=== PATIENT | female | born 1990 | race Caucasian/White ===

== ENCOUNTER 2021-03-24 19:18 | Emergency (ER) | payer OTHER, BC, SELFPAY ==
[2021-03-24 19:21] VITALS: BP 147/101; PULSE 85; RESP 18; TEMP 36.1; O2SAT 100
--- NOTE | 2021-03-24 21:07 | ED.GENADULT ---
HPI - General Adult General Chief complaint: Recheck/Abnormal Lab/Rx Stated complaint: possible hepatitus exposure Time Seen by Provider: 03/24/21 20:15 Source: patient Mode of arrival: ambulatory Limitations: no limitations History of Present Illness HPI narrative: Patient presents with chief complaint of left second digit injury while using a dental instrument in the patient's mouth prior to arrival. Patient reports that she instantly milked the finger and washed it thoroughly with antibacterial soap and peroxide. Patient reports that she was wearing a glove at the time and she left the glove over and it was not broken however she had an avulsion of her skin with blood noted that was hers. She states the patient reported having hepatitis as a child, so she wanted to be evaluated. She reports Hepatitis B vaccination.She denies any additional issues. Related Data Allergies Allergy/AdvReac Type Severity Reaction Status Date / Time lisinopril AdvReac Severe cough Verified 03/24/21 20:07 Review of Systems Review of Systems: CONSTITUTIONAL: Denies fever, chills, or sweats. EYES: Denies visual changes, redness, or discharge. ENT: Denies rhinorrhea, congestion, sore throat, or otalgia. CARDIOVASCULAR: Denies chest pain, palpitations, or edema. RESPIRATORY: Denies cough or dyspnea. GASTROINTESTINAL: Denies abdominal pain, nausea, vomiting, or diarrhea. GENITOURINARY: Denies dysuria or hematuria. SKIN: Reports skin avulsion denies rash or itching. MUSCULOSKELETAL: Denies back pain, joint pain, or myalgia. NEUROLOGIC: Denies headache, numbness, dizziness, or weakness. PSYCHIATRIC: Denies anxiety or depression. [facility] Family History Family History Father Hypertension Mother Hypertension Grandparent Acute myocardial infarction, Onset Age: 62 Family history unknown, Onset Age: 78 Social History Social History Smoking status: Never smoker Second hand tobacco smoke exposure: No Alcohol intake: never Substance use: never Exam Narrative: GENERAL: Well-appearing, well-nourished, and in no acute distress. HEAD: Normocephalic, atraumatic. EYES: PERRLA and EOMI. CHEST: Clear to auscultation. No respiratory distress. No wheezes rales or rhonchi. No tachypnea EXTREMITIES: Normal range of motion. No edema. SKIN: avulsion to left 2nd digit. No active bleeding. Warm, dry, no rash. NEURO: No focal deficits. Alert and oriented x3. PSYCH: Normal mood and affect. Course Vital Signs Vital signs: Vital Signs Temperature 97 F L 03/24/21 19:21 Pulse Rate 85 03/24/21 19:21 Respiratory Rate 18 03/24/21 19:21 Blood Pressure 147/101 H 03/24/21 19:21 Pulse Oximetry 100 03/24/21 19:21 Temperature 97 F L 03/24/21 19:21 Pulse Rate 85 03/24/21 19:21 Respiratory Rate 18 03/24/21 19:21 Blood Pressure 147/101 H 03/24/21 19:21 Pulse Oximetry 100 03/24/21 19:21 Medical Decision Making MDM Narrative Medical decision making narrative: Discussed with patient the CDC handout regarding blood exposures and recommendations. Discussed with her that there is not prophylactic treatment for hepatitis however there is for HIV. Patient would like to be prescribed HIV prophylactic treatment. Discussed risk-benefit profile. Discussed need for follow-up for retesting. Patient denies history of HIV. Patient denies chance of . Vital Signs Vital Signs: Vital Signs Temperature 97 F L 03/24/21 19:21 Pulse Rate 85 03/24/21 19:21 Respiratory Rate 18 03/24/21 19:21 Blood Pressure 147/101 H 03/24/21 19:21 Pulse Oximetry 100 03/24/21 19:21 Temperature 97 F L 03/24/21 19:21 Pulse Rate 85 03/24/21 19:21 Respiratory Rate 18 03/24/21 19:21 Blood Pressure 147/101 H 03/24/21 19:21 Pulse Oximetry 100 03/24/21 19:21 Lab Data Labs: Lab Results 03/24/21 03/24/21 Range/
[2021-03-24 21:25] VITALS: BP 140/84; PULSE 85; RESP 18; O2SAT 100
[2021-03-24 21:51] LABS: HIV 1/2 Ab P24 Ag Result Negative (Negative)
[2021-03-24 22:06] LABS: Hepatitis B Surface Antigen Negative (Negative)
[2021-03-24 22:12] LABS: HAV RESULT Negative (Negative); Hepatitis B Core IgM Result Negative (Negative)
[2021-03-24 22:24] LABS: Hepatitis C Virus Antibody Negative (Negative)
== END 2021-03-24 21:25 | disposition home or self-care (01) ==
LOC: ANHED 21:19
PROVIDERS: Physician Assistant; Emergency Provider Family Medicine; PCP Internal Medicine
DX: Z77.21 Contact with and (suspected) exposure to potentially hazardous body fluids (principal)
CPT/HCPCS: 36415; 80074; 86703; 99283; G0432

== ENCOUNTER 2023-11-02 10:55 | Outpatient (CLI) | payer OTHER, SELFPAY ==
[2023-11-02 13:13] LABS: Alanine Aminotransferase 18 U/L (6-35); Albumin Level 4.6 g/dL (3.5-5.1); Alkaline Phosphatase 60 U/L (38-126); Anion Gap 7 mmol/L (4-12); Aspartate Amino Transferase 51 U/L (14-36); Bilirubin,Total 0.6 mg/dL (0.2-1.3); Blood Urea Nitrogen 10 mg/dL (7-17); Carbon Dioxide 27 mmol/L (22-30); Chloride 104 mmol/L (98-107); Cholesterol 197 mg/dL (0-200); Estimated Glomerular Filt Rate > 60; Glucose 78 mg/dL (65-110); HDL Direct 37 mg/dL; Potassium 4.3 mmol/L (3.4-5.0); Sodium 138 mmol/L (137-145); Triglycerides 212 mg/dL (<150)
[2023-11-02 13:24] LABS: LDL Cholesterol Direct 124 mg/dL
[2023-11-02 13:49] LABS: Hemoglobin A1C 5.1 % (<5.7)
== END 2023-11-02 10:56 | disposition home or self-care (01) ==
LOC: ANHGOSHLAB 10:58
PROVIDERS: PCP Family Medicine; Visit Provider Family Medicine
DX: R73.9 Hyperglycemia, unspecified (principal); Z13.228 Encounter for screening for other metabolic disorders; E78.2 Mixed hyperlipidemia
CPT/HCPCS: 36415; 80053; 80061; 83036

== ENCOUNTER 2023-12-22 16:02 | Outpatient (CLI) | payer OTHER, SELFPAY ==
[2023-12-22 20:03] LABS: Free T4 Free Thyroxine 0.79 ng/mL (0.78-2.19)
== END 2023-12-22 16:03 | disposition home or self-care (01) ==
LOC: ANHGOSHLAB 16:03
PROVIDERS: PCP Family Medicine; Visit Provider Family Medicine
DX: Z13.29 Encounter for screening for other suspected endocrine disorder (principal)
CPT/HCPCS: 36415; 84439; 84443

== ENCOUNTER 2024-01-03 13:45 | Outpatient (CLI) | payer OTHER, SELFPAY ==
--- NOTE | ~2024-01-03 | MR_ITS ---
EXAMINATION: MRA neck wo/w con, MRA brain wo con DATE: 01/03/2024 14:55 INDICATION: Pulsatile tinnitus at the left ear TECHNIQUE: 1. Magnetic resonance angiography (MRA) of the neck was performed without and with 15 mL Multihance i ntravenous contrast. Sequences included axial 2D-time of flight T1-weighted FSPGR and coronal T1-weig hted FSPGR without and with intravenous contrast. 2. Magnetic resonance angiography (MRA) of the brain was performed without intravenous contrast with T1-weighted SPGR by the 3D [id number] technique. COMPARISON: None. FINDINGS: MRA NECK: There is 0% stenosis of the right carotid bulb relative to normal distal artery lumen diameter (NASCE T criteria). There is 0% stenosis of the left carotid bulb relative to normal distal artery lumen di ameter. Bilateral vertebral arteries are codominant with no evident hemodynamically significant steno sis. Bilateral A1 and P1 segments are patent. MRA brain: There is normal flow related signal seen within the vertebral, basilar and internal carotid arteries. There is no proximal stenosis. There are no aneurysms identified. Both A1 and P1 segments are pat ent. Flow in the cerebral arteries is symmetric. No abnormal arterial structures in the bilateral te mporal bones. The bilateral jugular bulbs are not high riding. IMPRESSION: 1. 0% stenosis of the right and left carotid bulbs relative to normal distal artery lumen diameter (N ASCET criteria). 2. Normal cerebral MR angiogram with no aneurysm or dissection. Reviewed, dictated and finalized at location A. IMPRESSION: 1. 0% stenosis of the right and left carotid bulbs relative to normal distal ar laly lumen diameter (NASCET criteria). 2. Normal cerebral MR angiogram with no aneurysm or dissection. IMPRESSION: 1. 0% stenosis of the right and left carotid bulbs relative to normal distal ar layl lumen diameter (NASCET criteria). 2. Normal cerebral MR angiogram with no aneurysm or dissection.
== END 2024-01-03 13:46 | disposition home or self-care (01) ==
PROVIDERS: PCP Family Medicine; Visit Provider Family Medicine
DX: H93.A2 Pulsatile tinnitus, left ear (principal); Z82.49 Family history of ischemic heart disease and other diseases of the circulatory system
CPT/HCPCS: 70544; 70549; A9577

== ENCOUNTER 2024-11-01 13:48 | Outpatient (CLI) | payer OTHER, SELFPAY ==
--- OUTSIDE RECORDS SUMMARY | 2024-11-01 14:04 | XMS_ITS | Referral Summary ---
Author Organization [facility] [address] [place] [phone] Care Team Providers Care Fundraising Manager Name Role Phone Bravo Hernandez DO Primary Care Provider [phone] Allergies No known active allergies Medications hydroCHLOROthiaz román (HYDRODIURIL) 12.5 mg tablet Take 12.5 mg by mouth daily 12/21/2021 Active losartan (COZAAR) 100 mg tablet Take 1 tablet (100 mg total) by mouth daily 12/21/2021 Active labetaloL (NORMODYNE,TRAND ATE) 100 mg tablet Take 1 tablet (100 mg total) by mouth 2 (two) times a day 10/28/2023 Active Active Problems Problem Noted Date Diagnosed Date Family history of ischemic heart disease 024 Social History Tobacco Use Types Packs/Day Years Used Date Smoking Tobacco: Never Smokeless Tobacco: Never Personal Safety Answer Date Recorded Getting School Help Needed Not on file 07/16 Comments Unknown Sex and Gender Information Value Date Recorded Sex Assigned at Not on file Legal Sex Female 3:06 PM CDT Gender Identity Female 07/08/2024 8:44 PM ENTERPRISE APPLICATION ARCHITECT Sexual Orientation Straight 07/08/2024 8: 44 PM ENTERPRISE APPLICATION ARCHITECT Last Filed Vital Signs Vital Sign Reading Time Taken Comments Blood Pressure 110/74 11/24/2023 1:41 PM CDT Pulse 87 11/24/2023 1:41 PM CDT Temperature - - Respiratory Rate - - Oxygen Saturation 99% 11/24/2023 1:41 PM CDT Inhaled Oxygen Concentration - - Weight 127.5 kg (281 lb 1.6 oz) 11/24/2023 1:41 PM CDT Height 190.5 cm (6' 3) 11/24/2023 1:41 PM CDT Body Mass Index 35.14 11/24/2023 1:41 PM CDT Plan of Treatment Not on file Insurance [employer] PPO [employer] PPO Care Teams Fundraising Manager Relationship Specialty Start Date End Date Bravo Hernandez DO [address] [place] [address] [place] [address] PCP - General Family Medicine 11/24/23
--- OUTSIDE RECORDS SUMMARY | 2024-11-01 14:04 | XMS_ITS | Clinical Summary ---
Author Organization [facility] Address [address] [place] [address] Care Team Providers Care Director Museum Or Zoo Name Role Phone Unavailable Primary Care Provider Unavailabl e Source Comments [facility],non-owned Affiliates and Associated Physician Practices is amultiple site organization consisting of ambulatory clinics and hospital sitesin [place], [place], [place] and [place]. This disclosure is being madepursuant to the Care Everywhere program and may not contain all information available regarding this patient. Last updated 18.[facility] [employer] Social History Tobacco Use Types Packs/Day Years Used Date Smoking Tobacco: Never Assessed Comments Unknown Sex and Gender Information Value Date Recorded Sex Assigned at Not on file Legal Sex Female 3:53 PM CDT Gender Identity Not on file Sexual Orientation Not on file Plan of Treatment Health Maintenance Due Date Last Done Comments HIV SCREENING 10/10/2003 HEPATITIS C SCREENING 10/05/2006 DTAP/TDAP/TD VACCINES (1 - Tdap) 10/10/2007 HEPATITIS B VACCINE (1 of 3 - 19+ 3-dose series) 10/10/2007 COVID-19 VACCINE ( - 2023-2 5 season) 2024 DEPRESSION SCREENING 05/16/2024 INFLUENZA VACCINE (Season Ended) 2025 ZOSTER VACCINE (1 of 2) 2038 HIB VACCINE Aged Out No longer eligi ble based on patient's age to complete this topic HPV VACCINE Aged Out No longer eligi ble based on patient's age to complete this topic MENINGOCOCCAL (Group B) VACC INE SHARED DECISION-MAKING Aged Out No longer eligibl e based on patient's age to complete this topic MENINGOCOCCAL GROUPS A/C/Y/W VACCINE Aged Out No longer eligible b ased on patient's age to complete this topic PNEUMOCOCCAL VACCINE Aged Out No long er eligible based on patient's age to complete this topic Insurance ANTHEM ANTHEM Member Subscriber Plan / Payer (Ef fective 2013-Present) Name:Marlys Washington Relation to Subscriber:Self Name:Marlys Washington Payer ID:[id number] (NAIC) Type:PPO Address: [address] [place] [id number]
--- OUTSIDE RECORDS SUMMARY | 2024-11-01 14:04 | XMS_ITS | Clinical Summary ---
Author Organization [facility] [address] [place] [phone] Care Team Providers Care Registered Travel Nurse Name Role Phone Bravo Hernandez DO Primary Care Provider [phone] Allergies No known active allergies Medications hydroCHLOROthiaz [...] Family history of ischemic heart disease 024 Medical History Medical History Date Comments Hypertension Family History Medical History Relation Name Comments Heart disease Father Heart attack Mother Relation Name Status Comments Father Mother Social History Tobacco Use Types Packs/Day Years Used Date Smoking Tobacco: Never Smokeless Tobacco: Never Personal Safety Answer Date Recorded Getting School Help Needed Not on file 07/16 Comments Unknown Sex and Gender Information Value Date Recorded Sex Assigned at Not on file Legal Sex Female 3:06 PM CDT Gender Identity Female 07/08/2024 8:44 PM HUMAN RESOURCES SUPERVISOR Sexual Orientation Straight 07/08/2024 8: 44 PM HUMAN RESOURCES SUPERVISOR Obstetrics History Last Filed Vital Signs Vital Sign Reading [...] 11/24/2023 1:41 PM CDT Plan of Treatment Health Maintenance Due Date Last Done Comments Cervical Cancer Screening 1988 Depression Screening 1988 Hepatitis C Screening 1988 DTaP/Tdap/Td Vaccine (1 - Tdap) 10/10/1999 Varicella Vaccines (1 of 2 - 13+ 2-dose series) 2001 Hepatitis B Screening 2006 Regular Well Visit/Exam 18-64 2006 Covid-19 Vaccine ( - 2023-2 5 season) 2024 03/21/2021, 06/18/2020, 05/28/2020 Influenza Vaccine (Season Ended) 2025 03/07/2021, 02/15/2020 HPV Vaccines Aged Out No longer eligi ble based on patient's age to complete this topic Pneumococcal vaccine <65 Aged Out No longer eligible based on patient's age to complete this topic Insurance [facility] OPTIONS PPO [facility] HMO/PPO Address: [facility] [address] [place] [address] [employer] OPTIONS PPO [facility] HMO/PPO Address: [address] [address] Care Teams Registered Travel Nurse Relationship Specialty Start Date End Date Bravo Hernandez DO [facility] [place] [address] PCP - General Family Medicine 11/24/23
--- OUTSIDE RECORDS SUMMARY | 2024-11-01 14:04 | XMS_ITS | Clinical Summary ---
Author Organization [facility] Address [address] [place] [phone] Phone Care Team Providers Care Religious Assistant Name Role Phone Unavailable Primary Care Provider Unavailabl e Immunizations Immunization Administration Dates Next Due (PFIZER)(12 YR UP) COVID-19 VACCINE - EMERGENCY USE AUTHORIZATION, MRNA, [id number](PF) 30 MCG/0.3 ML IM SUSP 06/18/2020,05/28/2020 Social History Tobacco Use Types Packs/Day Years Used Date Smoking Tobacco: Never Assessed Comments Unknown Sex and Gender Information Value Date Recorded Sex Assigned at Not on file Legal Sex Female 3:23 PM INFORMATION RECEPTIONIST Gender Identity Not on file Sexual Orientation Not on file Plan of Treatment Health Maintenance Due Date Last Done Comments DTAP/TDAP/TD VACCINES (1 - Tdap) 10/10/2007 HEPATITIS B VACCINES (1 of 3 - 19+ 3-dose series) 10/10/2007 HPV/Cotest (21-29) 2009 CERVICAL CANCER SCREENING 2018 HPV/Cotest (30-65) 2018 PAP SMEAR 2018 INFLUENZA VACCINE (#1) 2023 COVID-19 Vaccine (3 - 2023- season) 2024 06/18/2020, 05/28/2020 HPV VACCINES Aged Out No longer eligi ble based on patient's age to complete this topic
[2024-11-01 19:55] LABS: Hematocrit 44.4 % (37.0-47.0); Hemoglobin 14.5 g/dL (12.0-15.0); Mean Corpuscular HGB Conc 32.7 g/dl (32-36); Mean Corpuscular Hemoglobin 28.4 pg (26-34); Mean Corpuscular Volume 86.9 fl (80-100); Mean Platelet Volume 11.5 fl (7.4-10.4); Platelet Count Result 312 k/mm3 (150-375); Red Blood Count 5.11 M/mm3 (4.2-5.4); Red Cell Distribution Width 12.1 % (11.5-14.5); White Blood Count 7.7 K/mm3 (4.5-10.0)
[2024-11-01 20:09] LABS: Alanine Aminotransferase 21 U/L (6-35); Albumin Level 4.3 g/dL (3.5-5.1); Alkaline Phosphatase 59 U/L (38-126); Anion Gap 8 mmol/L (4-12); Aspartate Amino Transferase 42 U/L (14-36); Bilirubin,Total 0.4 mg/dL (0.2-1.3); Blood Urea Nitrogen 11 mg/dL (7-17); Carbon Dioxide 25 mmol/L (22-30); Chloride 105 mmol/L (98-107); Cholesterol 229 mg/dL (0-200); Estimated Glomerular Filt Rate > 60; Glucose 81 mg/dL (65-110); HDL Direct 34 mg/dL; Potassium 4.1 mmol/L (3.4-5.0); Sodium 138 mmol/L (137-145); Total Protein 7.3 g/dL (6.3-8.2); Triglycerides 217 mg/dL (<150)
[2024-11-01 20:20] LABS: LDL Cholesterol Direct 128 mg/dL
[2024-11-01 20:38] LABS: Thyroid Stimulating Hormone 0.071 uIU/mL (0.465-4.680)
[2024-11-01 21:14] LABS: Hemoglobin A1C 5.1 % (<5.7)
== END 2024-11-01 13:49 | disposition home or self-care (01) ==
LOC: ANHGOSHLAB 13:49
PROVIDERS: PCP Family Medicine; Visit Provider Family Medicine
DX: E78.2 Mixed hyperlipidemia (principal); E66.9 Obesity, unspecified; Z79.899 Other long term (current) drug therapy
CPT/HCPCS: 36415; 80053; 80061; 83036; 84443; 85027

== ENCOUNTER 2024-11-20 16:49 | Outpatient (CLI) | payer OTHER, SELFPAY ==
--- OUTSIDE RECORDS SUMMARY | 2024-11-20 16:53 | XMS_ITS | Encounter Summary ---
Author Organization [facility] Healthcare Address [address] [place] [address] Care Team Providers Care Hand Ii Cutter Name Role Phone Bravo Hernandez Primary Care Provider [phone] Encounter Details Date Type Department Care Team (Late st Contact Info) Description 11/15/2024 Telephone [facility] Medical Group Cardiology [address] [place] [address] Ulices Casper MD [address] [facility] [address] [place] [address] Social History Tobacco Use Types Packs/Day Years Used Date Smoking Tobacco: Never Smokeless Tobacco: Never Personal Safety Answer Date Recorded Getting School Help Needed Not on file 07/16 Comments Unknown Sex and Gender Information Value Date Recorded Sex Assigned at Not on file Legal Sex Female 3:06 PM CDT Gender Identity Female 07/08/2024 8:44 PM CLEANER WINDOW Sexual Orientation Straight 07/08/2024 8: 44 PM CLEANER WINDOW documented as of this encounter Miscellaneous Notes * Telephone Encounter - Isis Huynh MA - 11/19/2024 8:39 AM CDT Appointment scheduled. * Telephone Encounter - Isis Huynh MA - 11/15/2024 4:58 PM CDT Sent My Chart message to patient offering an appointment on 12/07 at 1:[address] Casper. * Telephone Encounter - Nat Sales - 11/15/2024 1:14 PM CDT Pt called concerned about her appt time on 12/07 w/ MJF she was told it was at 2:30 but when she received the call about it it was stated to be at 3 she is not able to do that because she has a flightto catch she is wondering if there is any way she can be squeezed in at 2:30 instead please advise thank you Contact: documented in this encounter Plan of Treatment Not on file documented as of this encounter Visit Diagnoses Not on filedocumented in this encounter Care Teams Hand Ii Cutter Relationship Specialty Start Date End Date Bravo Hernandez DO [address] [place] [address] [address] [place] [id number] PCP - General Family Medicine 11/24/23 documented as of this encounter
--- OUTSIDE RECORDS SUMMARY | 2024-11-20 16:53 | XMS_ITS | Referral Summary ---
Author Organization [facility] Physician Office Building [address] [place] [phone] Care Team Providers Care Printed Circuit Board Drafter Name Role Phone Bravo Hernandez DO Primary Care Provider [phone] Encounters Date Type Department Care Team Description 11/15/2024 Telephone [facility] Medical Group Cardiology [address] [place] [address] Ulices Casper MD from Last 3 Months Allergies No known active allergies Medications hydroCHLOROthiaz [...] CDT Gender Identity Female 07/08/2024 8:44 PM EDGE GRINDER MACHINE Sexual Orientation Straight 07/08/2024 8: 44 PM EDGE GRINDER MACHINE Last Filed Vital Signs Vital Sign Reading [...] Plan of Treatment Not on file Insurance [facility] HMO/PPO Address: [address] [place], [place] [id number] UMR OPTIONS PPO [facility] HMO/PPO Address: [address] [place] [address] Care Teams Printed Circuit Board Drafter Relationship Specialty Start Date End Date Bravo Hernandez DO [facility] [facility] [address] [place] [address], [place] [id number] PCP - General Family Medicine 11/24/23
--- OUTSIDE RECORDS SUMMARY | 2024-11-20 16:53 | XMS_ITS | Clinical Summary ---
Author Organization [facility] Address [address] [place] [phone] Phone Care Team Providers Care Business Law Instructor Name Role Phone Unavailable Primary Care Provider Unavailabl e Immunizations Immunization Administration Dates Next Due (PFIZER)(12 YR UP) COVID-19 VACCINE - EMERGENCY USE AUTHORIZATION, MRNA, [id number](PF) 30 MCG/0.3 ML IM SUSP 06/18/2020,05/28/2020 Social History Tobacco Use Types Packs/Day Years Used Date Smoking Tobacco: Never Assessed Comments Unknown Sex and Gender Information Value Date Recorded Sex Assigned at Not on file Legal Sex Female 3:23 PM DIAMOND SIZER Gender Identity Not on file Sexual Orientation Not on file Plan of Treatment Health Maintenance Due Date Last Done Comments DTAP/TDAP/TD VACCINES (1 - Tdap) 10/10/2007 HEPATITIS B VACCINES (1 of 3 - 19+ 3-dose series) 10/10/2007 HPV/Cotest (21-29) 2009 CERVICAL CANCER SCREENING 2018 HPV/Cotest (30-65) 2018 PAP SMEAR 2018 COVID-19 Vaccine (3 - 2023- season) 2024 06/18/2020, 05/28/2020 INFLUENZA VACCINE (#1) 2024 HPV VACCINES Aged Out No longer eligi ble based on patient's age to complete this topic
--- OUTSIDE RECORDS SUMMARY | 2024-11-20 16:53 | XMS_ITS | Clinical Summary ---
Author Organization [facility] Physician Office Building [address] [place] [phone] Care Team Providers Care Manager Financial Services Name Role Phone Bravo Hernandez DO Primary Care Provider [phone] Allergies No known active allergies Medications hydroCHLOROthiaz [...] Family history of ischemic heart disease 024 Encounters Date Type Department Care Team Description 11/15/2024 Telephone [facility] Medical [facility] Cardiology [address] [facility] [address] [place] [address] Ulices Casper MD from Last 3 Months Medical History Medical History Date Comments Hypertension [...] CDT Gender Identity Female 07/08/2024 8:44 PM SATELLITE INSTALLATION TECHNICIAN Sexual Orientation Straight 07/08/2024 8: 44 PM SATELLITE INSTALLATION TECHNICIAN Obstetrics History Last Filed Vital Signs Vital [...] Regular Well Visit/Exam 18-64 2006 Covid-19 Vaccine (4 - 2023-2 5 season) 2024 03/21/2021, 06/18/2020, 05/28/2020 Influenza Vaccine (#1) 2025 , 02/15/2020 HPV Vaccines Aged Out No longer eligi ble based on patient's age to complete this topic Pneumococcal vaccine <65 Aged Out No longer eligible based on patient's age to complete this topic Insurance [employer] OPT[employer] PPO [employer] PPO Care Teams Manager Financial Services Relationship Specialty Start Date End Date Bravo Hernandez DO [facility] [address] [address] PCP - General Family Medicine 11/24/23
--- OUTSIDE RECORDS SUMMARY | 2024-11-20 16:53 | XMS_ITS | Clinical Summary ---
Author Organization [facility] Address [address] [facility] [place] [address] Care Team Providers Care Light Technician Name Role Phone Unavailable Primary Care Provider Unavailabl e Source Comments [facility],non-owned Affiliates and Associated Physician Practices is amultiple site organization consisting of ambulatory clinics and hospital sitesin [place], [place], [place] and [place]. This disclosure is being madepursuant to the Care Everywhere program and may not contain all information available regarding this patient. Last updated 18.[facility] [employer] Social History Tobacco Use Types Packs/Day Years [...] season) 2024 DEPRESSION SCREENING 05/16/2024 INFLUENZA VACCINE (#1) 2025 ZOSTER VACCINE (1 of 2) 2038 [...] Payer ID:[id number] (NAIC) Type:PPO Address: [address] [place] [phone]
[2024-11-20 18:35] LABS: Free T4 Free Thyroxine 0.90 ng/dL (0.78-2.19)
[2024-11-20 18:44] LABS: Thyroid Stimulating Hormone 1.810 uIU/mL (0.465-4.680)
== END 2024-11-20 16:50 | disposition home or self-care (01) ==
PROVIDERS: PCP Family Medicine; Visit Provider Family Medicine
DX: R79.89 Other specified abnormal findings of blood chemistry (principal)
CPT/HCPCS: 36415; 84439; 84443